=== PATIENT | female | born 1985 | race Caucasian/White ===

== ENCOUNTER 2018-03-28 17:10 | Emergency (ER) | payer MEDICAID ==
[2018-03-28 17:35] VITALS: BP 117/79
[2018-03-28] MEDS ORDERED: NORMAL SALINE 1000 ML 1,000 ML IV ONE (17:39)
[2018-03-28] MEDS ORDERED: ONDANSETRON HCL INJ/PF 4 MG/2 ML SDV IV ONE (17:39)
[2018-03-28] MEDS ORDERED: PROCHLORPERAZINE EDISYLATE INJ 10 MG/2 ML VIAL IV ONE (17:39)
--- NOTE | 2018-03-28 20:54 | ER Document Report ---
ED General - General Chief Complaint: Headache Stated Complaint: HEADACHE Time Seen by Provider: 03/28/18 17:36 TRAVEL OUTSIDE OF THE [place] IN LAST 30 DAYS: No - HPI Patient complains to provider of: Headache Notes: Patient coming in for headache ongoing for the last 3 days. Patient states history of migraines has been evaluated by neurology with imaging studies performed of her head showing no acute pathology patient states she is not on any chronic migraine medication at this time. Patient states no relief of her migraine at this time but Tylenol patient states headache is right-sided similar to her migraines in the past. Denies any fever chills nausea vomiting diarrhea denies any trauma. Patient is resting comfortably and in no obvious distress upon my evaluation. - Related Data Allergies/Adverse Reactions: tramadol Allergy (Verified 03/16/16 13:21) Past Medical History - Social History Smoking Status: Never Smoker Chew tobacco use (# tins/day): No Frequency of alcohol use: None Drug Abuse: None Family History: Reviewed & Not Pertinent Patient has suicidal ideation: No Patient has homicidal ideation: No Pulmonary Medical History: Reports: Hx Asthma Renal/ Medical History: Denies: Hx Peritoneal Dialysis Past Surgical History: Reports: Hx Section, Hx Tonsillectomy Review of Systems - Review of Systems Constitutional: No symptoms reported EENT: No symptoms reported Cardiovascular: No symptoms reported Respiratory: No symptoms reported Gastrointestinal: No symptoms reported Genitourinary: No symptoms reported Female Genitourinary: No symptoms reported Musculoskeletal: No symptoms reported Skin: No symptoms reported Hematologic/Lymphatic: No symptoms reported Neurological/Psychological: Headaches -: Yes All other systems reviewed and negative Physical Exam - Vital signs Vitals: Temp Pulse Resp BP Pulse Ox 98.6 F 83 20 117/79 100 03/28/18 17:34 03/28/18 17:34 03/28/18 17:34 03/28/18 17:34 03/28/18 17:34 Interpretation: Normal - General General appearance: Appears well, Alert - HEENT Head: Normocephalic, Atraumatic Eyes: Normal Pupils: PERRL - Respiratory Respiratory status: No respiratory distress Chest status: Nontender Breath sounds: Normal Chest palpation: Normal - Cardiovascular Rhythm: Regular Heart sounds: Normal auscultation Murmur: No - Abdominal Inspection: Normal Distension: No distension Bowel sounds: Normal Tenderness: Nontender Organomegaly: No organomegaly - Back Back: Normal, Nontender - Extremities General upper extremity: Normal inspection, Nontender, Normal color, Normal ROM , Normal temperature General lower extremity: Normal inspection, Nontender, Normal color, Normal ROM , Normal temperature, Normal weight bearing. No: Can's sign - Neurological Neuro grossly intact: Yes Cognition: Normal Orientation: AAOx4 [place] Coma Scale Eye Opening: Spontaneous [place] Coma Scale Verbal: Oriented [place] Coma Scale Motor: Obeys Commands [place] Coma Scale Total: 15 Speech: Normal Cranial nerves: Normal Motor strength normal: LUE, RUE, LLE, RLE Sensory: Normal Knee - Reflex grade: 2 = Normal - Psychological Associated symptoms: Normal affect, Normal mood - Skin Skin Temperature: Warm Skin Moisture: Dry Skin Color: Normal Course - Re-evaluation Re-evalutation: 03/28/18 20:53 The patient presents with headache without signs of [employer] PROFILER bleed, stroke, infection , or other serious etiology. The patient is neurologically intact. Given the extremely low risk of these diagnoses further testing and evaluation for these possibilities does not appear to be indicated at this time. The patient has been instructed to return if the symptoms worsen or change in any way.. At time of the. Patient's discharge papers instructed by the nursing staff today were unable to find the patient. Patient looks to eloped from the ER - Vital Signs Vital signs: Temp Pulse Resp BP Pulse Ox 98.6 F 83 20 117/79 100 03/28/18 17:34 03/28/18 17:34 03/28/18 17:34 03/28/18 17:34 03/28/18 17:34 Discharge - Discharge Clinical Impression: Headache Qualifiers: Headache type: unspecified Headache chronicity pattern: unspecified pattern Intractability: not intractable Qualified Code(s): R51 - Headache Disposition: ELOPED
== END 2018-03-28 19:51 | disposition left against medical advice (07) ==
LOC: ER 17:10
DX: R51 Headache (principal)
CPT/HCPCS: 99281; 96361; 96374; 96375; J0780; J2405; J7030

== ENCOUNTER 2018-08-06 10:12 | Outpatient (CLI) | payer MEDICAID | END 2018-08-06 11:19 | disposition home or self-care (01) | LOC: LC 10:12 | PROVIDERS: ATTEND Obstetrics & Gynecology Gynecology | DX: O36.8390 Maternal care for abnormalities of the fetal heart rate or rhythm, unspecified trimester, not applicable or unspecified (principal); O13.3 Gestational [pregnancy-induced] hypertension without significant proteinuria, third trimester; Z3A.36 36 weeks gestation of pregnancy; O24.419 Gestational diabetes mellitus in pregnancy, unspecified control | CPT/HCPCS: 59025 ==

== ENCOUNTER 2018-08-18 22:19 | Outpatient (CLI) | payer MEDICAID ==
[2018-08-18 22:42] LABS: APPEARANCE,URINE CLOUDY; BILIRUBIN,URINE NEGATIVE (NEGATIVE); COLOR,URINE YELLOW; GLUCOSE, URINE NEGATIVE (NEGATIVE); KETONES,URINE 20 mg/dL (NEGATIVE); LEUKOCYTE ESTERASE,URINE LARGE (NEGATIVE); NITRITE,URINE NEGATIVE (NEGATIVE); PROTEIN,URINE NEGATIVE (NEGATIVE); URINE SPECIFIC GRAVITY 1.027; UROBILINOGEN,URINE NEGATIVE mg/dL (<2.0)
[2018-08-18 22:57] LABS: URINE AMPHETAMINES SCREEN NEGATIVE; URINE BARBITURATES SCREEN NEGATIVE; URINE BENZODIAZEPINES SCREEN NEGATIVE; URINE COCAINE SCREEN NEGATIVE; URINE MARIJUANA (THC) SCREEN NEGATIVE; URINE METHADONE SCREEN NEGATIVE; URINE PHENCYCLIDINE SCREEN NEGATIVE
== END 2018-08-18 23:41 | disposition home or self-care (01) ==
LOC: LC 22:19
PROVIDERS: ATTEND Obstetrics & Gynecology
PROC: 4A1HXCZ Monitoring of Products of Conception, Cardiac Rate, External Approach (ICD-10-PCS; principal; 2018-08-18)
DX: O47.1 False labor at or after 37 completed weeks of gestation (principal); Z3A.38 38 weeks gestation of pregnancy
CPT/HCPCS: 59025; 80307; 81005

== ENCOUNTER 2018-08-19 07:41 | Inpatient (IN) | payer MEDICAID ==
[2018-08-19 08:29] LABS: APPEARANCE,URINE SLIGHTLY-CLOUDY; BILIRUBIN,URINE NEGATIVE (NEGATIVE); COLOR,URINE YELLOW; GLUCOSE, URINE NEGATIVE (NEGATIVE); KETONES,URINE NEGATIVE (NEGATIVE); LEUKOCYTE ESTERASE,URINE LARGE (NEGATIVE); NITRITE,URINE NEGATIVE (NEGATIVE); PROTEIN,URINE NEGATIVE (NEGATIVE); UROBILINOGEN,URINE NEGATIVE mg/dL (<2.0)
[2018-08-19 08:44] LABS: URINE AMPHETAMINES SCREEN NEGATIVE; URINE BARBITURATES SCREEN NEGATIVE; URINE BENZODIAZEPINES SCREEN NEGATIVE; URINE COCAINE SCREEN NEGATIVE; URINE MARIJUANA (THC) SCREEN NEGATIVE; URINE METHADONE SCREEN NEGATIVE; URINE PHENCYCLIDINE SCREEN NEGATIVE
[2018-08-19] MEDS ORDERED: PENICILLIN G POTASSIUM 5,000,000 UNIT in DEXTROSE 5%-WATER 100 ML IV ONE (08:56)
[2018-08-19] MEDS ORDERED: OXYTOCIN/NORMAL SALINE 20 UNIT/1,000 ML RTUINJ IV PRN ×2 (08:56→22:36)
[2018-08-19] MEDS: RINGERS SOLUTION,LACTATED 1,000 ML IV PRN ×2 (09:00→17:53)
[2018-08-19] MEDS ORDERED: PENICILLIN G-K 5 MILLION UNIT VIAL ONE ×3 (09:50→18:52)
[2018-08-19 10:11] LABS: HEMATOCRIT 32.2 % (36.0-47.0); HEMOGLOBIN 10.9 g/dL (12.0-15.5); MEAN CORPUSCULAR HEMOGLOBIN 27.8 pg (27.0-33.4); MEAN CORPUSCULAR HGB CONC 33.9 g/dL (32.0-36.0); MEAN CORPUSCULAR VOLUME 82 fl (80-97); PLATELET COUNT 329 10^3/uL (150-450); RED BLOOD COUNT 3.93 10^6/uL (3.72-5.28); RED CELL DISTRIBUTION WIDTH 13.8 % (11.5-14.0); WHITE BLOOD COUNT 9.6 10^3/uL (4.0-10.5)
[2018-08-19] MEDS ORDERED: OXYTOCIN/NORMAL SALINE 0 UNIT/0 ML RTUINJ ONE (10:43)
--- NOTE | 2018-08-19 14:02 | Admission Physical ---
Datetime Report Generated by CPN: 08/19/2018 14:01 CURRENT ADMISSION Hx Assessment: The History has been Reviewed and is Current Chief Complaint: Suspected Ruptured Membranes Indication for Induction: PROM Admit Impression : Term, Intrauterine Admit Plan: Initiate Labor Augmentation Protocol; Initiate Protocol ALLERGIES Medication Allergies: No Medication Allergies: tramadol (03/16/2016) Latex: No Latex Allergies OBSTETRICAL HISTORY EDC: 08/28/2018 00:00 : 3 Para: 2 Term: 2 : 0 SAB: 0 IAB: 0 Ectopic: 0 Livin Cesareans: 1 VBACs: 1 Multiple Births: 0 Gestational Diabetes: Yes Rh Sensitization: No Incompetent Cervix: No GAIL: No Infertility: No ART Treatment: No Uterine Anomaly: No IUGR: No Hx Previous C/S: Yes Macrosomia: No Hx Loss/Stillborn: No PIH: No Hx : No Placenta Previa/Abruption: No Depression/PP Depression: Yes PTL/PROM: No Post Hemorrhage: No Current Procedures: Ultrasound; NST Obstetrical History Comments: g1 - 06/23/2007 40 weeks c/s for faiure to progress and pelvis too small for size of baby 7lb 6oz male g2 - 02/02/2011 41 weeks female 6lb 0oz g3 - current - GDM, GBS+, Polyhydramnios, chronic hypertension SEE RECORDS Alcohol: No Marijuana : No Cocaine: No Other Illicit Drugs: No Cigarettes: Never Smoker. [id number] MEDICAL HISTORY Diabetes: Yes Diabetes Type: Gestational Diabetes Blood Transfusion: No Pulmonary Disease (Asthma, TB): Yes Breast Disease: No Hypertension: No Down Filler Surgery: No Heart Disease: No Hosp/Surgery: No Autoimmune Disorder: No Anesthetic Complications: No Kidney Disease: No Abnormal Pap Smear: No Neuro/Epilepsy: No Psychiatric Disorders: Yes Other Medical Diseases: No Hepatitis/Liver Disease: No Significant Family History: No Varicosities/Phlebitis: No Trauma/Violence : No Thyroid Dysfunction: No Medical History Comments: anxiety/depression INFECTIOUS HISTORY Gonorrhea: No Genital Herpes: No Chlamydia: No Tuberculosis: No Syphilis: No Hepatitis: No HIV/AIDS Exposure: No Rash or Viral Illness: No HPV: No PHYSICAL EXAM General: Normal Neurologic: Normal Heart: Normal Lungs: Normal Abdomen: Normal Extremities: Normal DTRs: Normal Pelvic Type: Adequate Physical Exam Comments: pelvis proven to 6lbs Vital Signs: Reviewed Details Vital Signs: mild range MEMBRANES Membranes: Ruptured Amniotic Fluid Color: Clear FETUS A EGA: 38.5 Monitoring: External US Variability: Moderate 6-25bpm FHR Category: Category I Presentation: Vertex Admit Comment: 32yo @ 38w5d into L_D this AM with SROM-clear fluid @ 0645. Pt. is A positive, rubella immune, GBS neg with hx of a primary in 2007 with in 2010. Pt. wants to attempt a TOLAC today. Medical hx also complicated by CHTN, PCOS, GDM, BMI 31 @ NOB and polyhydramnious. Report given to Dr. Guevara who is OB photographic reproduction technician today. Aware of patient and poc. PLANS FOR LABOR AND DELIVERY Labor and Delivery: None Pain Management: Medications Feeding Preference: Breast Benefit of Breast Feed Discussed: Yes Circumcision: No INFORMED CONSENT Assignment: Jamal Guevara MD Signature: with User ID: Catina : with User ID: [email or web address]
[2018-08-19] MEDS: PENICILLIN G POTASSIUM 2,500,000 UNIT in DEXTROSE 5%-WATER 50 ML IV SCH ×2 (14:16→18:55)
[2018-08-19] MEDS ORDERED: MISOPROSTOL 0.2 MG TABLET ONE (17:42)
[2018-08-19] MEDS ORDERED: OXYTOCIN 10 UNIT/ML VIAL ONE (17:42)
[2018-08-19] MEDS ORDERED: OXYTOCIN/NORMAL SALINE 20 UNIT/1,000 ML RTUINJ ONE (17:42)
[2018-08-19] MEDS ORDERED: LIDOCAINE 1% INJ-PF (10 MG/ML) 30 ML SDV ONE (17:42)
[2018-08-19] MEDS ORDERED: BUPIVACAINE HCL 0.25 % INJ/PF (2.5 MG/1 ML) 30 ML VIAL ONE (20:42)
[2018-08-19] MEDS ORDERED: EPHEDRINE SULFATE INJ 50 MG/1 ML AMPULE ONE (20:43)
[2018-08-19] MEDS ORDERED: FENTANYL/BUPIVACAINE/NS/PF 300 MCG/150 ML RTUINJ EPI ONE (20:43)
[2018-08-19] MEDS ORDERED: DIBUCAINE 1% OINTMENT 56 GM TP PRN (22:36)
[2018-08-19] MEDS ORDERED: NA PHOS,M-B/NA PHOS,DI-BA (ADULT) 133 ML ENEMA PR PRN (22:36)
[2018-08-19] MEDS ORDERED: ACETAMINOPHEN 650 MG SUPP.RECT PR PRN (22:36)
[2018-08-19] MEDS ORDERED: DIPHENHYDRAMINE HCL 25 MG CAPSULE PO PRN (22:36)
[2018-08-19] MEDS ORDERED: DIPH/PERTUSS(ACELL)/TETANUS VAC/PF 0.5 ML SYR (>=10YO) IM PRN (22:36)
[2018-08-19] MEDS ORDERED: MAGNESIUM HYDROXIDE SUSP 30 ML UDCUP PO PRN (22:36)
[2018-08-19] MEDS ORDERED: GLYCERIN/WITCH HAZEL LEAF 1 EACH MED..PAD TP PRN (22:36)
[2018-08-19] MEDS ORDERED: BENZOCAINE/MENTHOL AEROSOL SPRAY 56 ML TOP PRN (22:36)
[2018-08-19] MEDS ORDERED: ACETAMINOPHEN WITH CODEINE #3 TABLET PO PRN ×2 (22:36)
[2018-08-19] MEDS ORDERED: PSEUDOEPHEDRINE HCL 30 MG TABLET PO PRN (22:36)
[2018-08-19] MEDS ORDERED: MEASLES,MUMPS&RUBELLA VACC/PF 0.5 ML VIAL SUBCUT PRN (22:36)
[2018-08-19] MEDS ORDERED: ZOLPIDEM TARTRATE 5 MG TABLET PO PRN (22:36)
[2018-08-19] MEDS ORDERED: PROMETHAZINE HCL 25 MG SUPP.RECT PR PRN (22:36)
[2018-08-19] MEDS ORDERED: PROMETHAZINE HCL INJ 25 MG/1 ML VIAL IV PRN (22:36)
[2018-08-19] MEDS ORDERED: PROMETHAZINE HCL 25 MG TABLET PO PRN (22:36)
[2018-08-19] MEDS ORDERED: IBUPROFEN 800 MG TABLET ONE (22:47)
[2018-08-19] MEDS ORDERED: FAMOTIDINE 20 MG TABLET PO ONE (23:59)
[2018-08-19] MEDS ORDERED: IBUPROFEN 800 MG TABLET PO ONE (23:59)
--- NOTE | 2018-08-20 00:35 | Warning Signs in Babies ---
VOD Warning Signs Datetime Report Generated by [facility]: 08/20/2018 00:35 VOD#608 -Warning Signs in Babies: Needs to be viewed. (08/06/2018 10:29:Tuyet Molina RN)
[2018-08-20] MEDS: IBUPROFEN 800 MG TABLET PO SCH ×3 (06:00→23:26)
[2018-08-20] MEDS ORDERED: MEASLES,MUMPS&RUBELLA VACC/PF 0.5 ML VIAL SUBCUT PRN (07:30)
[2018-08-20] MEDS ORDERED: DIPH/PERTUSS(ACELL)/TETANUS VAC/PF 0.5 ML SYR (>=10YO) IM PRN (07:30)
[2018-08-20] MEDS ORDERED: PROMETHAZINE HCL INJ 25 MG/1 ML VIAL IV PRN (07:30)
[2018-08-20 08:11] LABS: HEMOGLOBIN 10.6 g/dL (12.0-15.5); MEAN CORPUSCULAR HEMOGLOBIN 27.1 pg (27.0-33.4); MEAN CORPUSCULAR HGB CONC 33.3 g/dL (32.0-36.0); MEAN CORPUSCULAR VOLUME 82 fl (80-97); PLATELET COUNT 269 10^3/uL (150-450); RED BLOOD COUNT 3.93 10^6/uL (3.72-5.28); WHITE BLOOD COUNT 15.2 10^3/uL (4.0-10.5)
[2018-08-20] MEDS: DOCUSATE SODIUM 100 MG CAPSULE PO SCH ×2 (11:40→17:32)
[2018-08-20] MEDS: FERROUS SULFATE 325 MG TABLET PO SCH ×2 (11:40→17:32)
[2018-08-20] MEDS: SENNOSIDES/DOCUSATE 8.6-50 MG 1 EACH TABLET PO SCH (11:40)
[2018-08-20] MEDS: PRENATAL VITAMIN W DHA CAPSULE PO SCH (11:40)
[2018-08-20] MEDS: FAMOTIDINE 20 MG TABLET PO SCH (11:41)
--- NOTE | 2018-08-20 12:42 | PDOC PROGRESS REPORT ---
Subjective-OB Progress Note for:: 08/20/18 - PP Day #1, doing well, no complaints. denies headache. Hx CHTN. A+, rubella Immune, , x 2 Physical Exam (OB) Vital Signs: Temp Pulse Resp BP Pulse Ox 98.2 F 88 18 123/78 97 08/20/18 08:00 08/20/18 08:00 08/20/18 08:00 08/20/18 08:00 08/20/18 08:00 Intake & Output 08/19/18 08/20/18 08/21/18 06:59 06:59 06:59 Intake Total 1050 Balance 1050 Weight 82.7 kg - General General Appearance: Appears well, Alert In distress: None - PIH/Pre-Eclampsia Headache: Absent Epigastric Pain: No Visual Changes: No - Lochia Lochia Amount: Scant < 10 ml Lochia Color: Rubra/Red - Abdomen Description: Soft, Round Hernia Present: No Fundal Description: Firm, Midline Fundal Height: u/u - u/2 - Respiratory Respiratory Status: No respiratory distress - Abdominal Inspection: Normal Distension: No distension - Genitourinary Genitourinary Note: voiding - Extremities Upper extremity: Normal inspection Lower extremities: Normal inspection - Neurological Cognition: Normal Orientation: AAOx4 Speech: Normal - Psychological Associated symptoms: Normal affect, Normal mood - Skin Skin Temperature: Warm Skin Moisture: Dry Objective-Diagnostic Laboratory: 08/20/18 07:38 08/20/18 07:38 WBC 15.2 H RBC 3.93 Hgb 10.6 L Hct 32.0 L MCV 82 MCH 27.1 MCHC 33.3 RDW 14.0 Plt Count 269 Assessment and Plan(PN) - Assessment and Plan (1) (normal spontaneous vaginal delivery) Is this a current diagnosis for this admission?: Yes - Time Spent with Patient Time with patient: Less than 15 minutes Medications reviewed and adjusted accordingly: Yes - Disposition Anticipated Discharge: Home Within: within 24 hours
[2018-08-21] MEDS: FAMOTIDINE 20 MG TABLET PO SCH ×2 (00:38→09:48)
[2018-08-21] MEDS: IBUPROFEN 800 MG TABLET PO SCH ×2 (06:03→13:51)
[2018-08-21 09:35] VITALS: BP 122/75
[2018-08-21] MEDS: DOCUSATE SODIUM 100 MG CAPSULE PO SCH ×2 (09:48→17:31)
[2018-08-21] MEDS: PRENATAL VITAMIN W DHA CAPSULE PO SCH (09:48)
[2018-08-21] MEDS: SENNOSIDES/DOCUSATE 8.6-50 MG 1 EACH TABLET PO SCH (09:48)
[2018-08-21] MEDS: FERROUS SULFATE 325 MG TABLET PO SCH ×2 (09:48→17:31)
--- NOTE | 2018-08-21 10:06 | PDOC DISCHARGE SUMMARY ---
Final Diagnosis Discharge Date: 08/21/18 - Final Diagnosis (1) (normal spontaneous vaginal delivery) Is this a current diagnosis for this admission?: Yes (2) Normal course Is this a current diagnosis for this admission?: Yes (3) Vaginal after , delivered, current hospitalization Is this a current diagnosis for this admission?: Yes Discharge Data - Discharge Medication Prescriptions: Ibuprofen [Motrin 800 mg Tablet] 800 mg PO Q8HP PRN #60 tablet PRN Reason: Home Medications: Buspirone HCl [Buspar 10 mg Tablet] 10 mg PO BID 08/06/18 Citalopram Hydrobromide [Celexa 10 mg Tablet] 10 mg PO QHS 08/06/18 Zolpidem Tartrate [Ambien] 10 mg PO QHS 08/06/18 Vit No.130/Iron/Folic [ Tablet] 1 each PO DAILY 08/19/18 Ibuprofen [Motrin 800 mg Tablet] 800 mg PO Q8HP PRN #60 tablet 08/21/18 Intrapartum Procedure(s): Spontaneous Vaginal Delivery - Diagnosis Test Laboratory: Temp Pulse Resp BP Pulse Ox 98.0 F 72 16 122/75 97 08/21/18 08:32 08/21/18 08:32 08/21/18 08:32 08/21/18 08:32 08/21/18 08:32 08/19/18 08/19/18 08/20/18 08:05 09:50 07:38 RBC 3.93 3.93 Hgb 10.9 L 10.6 L Hct 32.2 L 32.0 L Urine Opiates Screen NEGATIVE - Discharge information/Instructions Discharge Activity: Balance Activity w/Rest, Pelvic Rest Discharge Diet: Regular Disposition: HOME, SELF-CARE Follow up with: [facility] in: 4, Weeks
--- NOTE | 2018-08-27 12:39 | Delivery Summary ---
Del Sum A-C Datetime Report Generated by CPN: 08/27/2018 12:39 DELIVERY PERSONNEL DELIVERY PERSONNEL: [id number] Delivery Doctor:: Jamal Guevara MD Labor and Delivery Nurse:: Tuyet Molina, hardware installer Nurse:: Maddison Wagner RN Mental Health Orderly/ACADEMIC SUPPORT ASSISTANT: Alejandra Ross, ST MATERNAL INFORMATION Delivery Anesthesia: Epidural Medications After Delivery: Pitocin Drip 20 Units/1000ml NSS Maternal Complications: Other Complication Details: LABOR SUMMARY EDC: 08/28/2018 00:00 No. Babies in Womb: 1 Attempted: Yes Labor Anesthesia: Epidural LABOR INFORMATION Reason for Induction: Not Applicable Onset of Labor: 08/19/2018 08:21 Complete Dilatation: 08/19/2018 21:47 Oxytocin: Augmentation Group B Beta Strep: positive Antibiotics # of Doses: 3 Antibiotics Time of Last Dose: 1854 Name of Antibiotic Given: Penicillin Steroids Given: None Reason Steroids Not Administered: Not Applicable MEMBRANES Membranes Rupture Method: Spontaneous Rupture of Membranes: 08/19/2018 05:15 Length of Rupture (hr): 17.20 Amniotic Fluid Color: Clear Amniotic Fluid Amount: Moderate Amniotic Fluid Odor: Normal STAGES OF LABOR Stage 1 hr: 13 Stage 1 min: 26 Stage 2 hr: 0 Stage 2 min: 40 Stage 3 hr: 0 Stage 3 min: 4 Total Time in Labor hr: 14 Total Time in Labor min: 10 VAGINAL DELIVERY Episiotomy: None Laceration #1: None Laceration #1: None Laceration Extension #1: N/A Laceration Extension #1: N/A Laceration Repair: Not Applicable Sponge Count Correct: Yes Sharps Count Correct: Yes CSECTION DELIVERY Primary Indication: N/A Secondary Indication: N/A CSection Incidence: N/A Labor: N/A Elective: N/A CSection Incision: N/A BABY A INFORMATION Delivery Date/Time: 08/19/2018 22:27 Method of Delivery: Vaginal Born in Route : No : Successful Forceps: N/A Vacuum Extraction: N/A Shoulder Dystocia : No PRESENTATION/POSITION BABY A Presentation: Cephalic Cephalic Presentation: Vertex Vertex Position: Direct Occipital Posterior Breech Presentation: N/A PLACENTA INFORMATION BABY A Placenta Delivery Time : 08/19/2018 22:31 Placenta Method of Delivery: Spontaneous Placenta Method of Delivery: Spontaneous Placenta Status: Delivered SCORES BABY A Heart Rate 1 min: >100 bpm Resp Effort 1 min: Good Cry Reflex Irritability 1 min: Cough or Sneeze or Pulls Away Muscle Tone 1 min: Active Motion Color 1 min: Blue/Pale SCORE 1 MIN: 8 Heart Rate 5 min: >100 bpm Resp Effort 5 min: Good Cry Reflex Irritability 5 min: Cough or Sneeze or Pulls Away Muscle Tone 5 min: Active Motion Color 5 min: Body [place], Extremities Blue SCORE 5 MIN: 9 INFANT INFORMATION BABY A Gestational Age at Delivery: 38.5 Gestational Status: Early Term- 37- 38.6 Weeks Outcome : Liveborn Infant Condition : Stable Infant Sex: Male IDENTIFICATION BABY A Verification Date/Time: 08/19/2018 22:35 ID Band Number: [id number] Mother's Name Verified: Yes Infant RN Verifying : NDoyle RN, TGentilin RN WEIGHT/LENGTH BABY A Birthweight (gm): 2640 Weight (lb): 5 Infant Weight (oz): 13 Length (in): 18.50 Infant Length (cm): 46.99 CORD INFORMATION BABY A No. Cord Vessels: 3 Nuchal Cord : N/A Cord Blood Taken: Yes-For Storage (Mom's Blood type +) ASSESSMENT BABY A Infant Complications: Multiple Late Decels; Multiple Variable Decels Physical Findings at Delivery: Within Normal Limits Respirations: Appears Normal Skin to Skin: Yes Machinist Apprentice Wood/ALS Called : No Infant Care By: Zain Wagner RN Transferred To: Nursery BABY B INFORMATION : N/A SIGNATURES Signature: with User ID: [email or web address]
== END 2018-08-21 19:15 | disposition home or self-care (01) | DRG 806 ==
LOC: LC 07:41 → LR 08:29 → 2S 08-20 01:05
PROVIDERS: ADMIT Obstetrics & Gynecology Gynecology; ATTEND Obstetrics & Gynecology Gynecology
PROC: 10E0XZZ Delivery of Products of Conception, External Approach (ICD-10-PCS; principal; 2018-08-19)
DX: O34.211 Maternal care for low transverse scar from previous cesarean delivery (principal); O10.92 Unspecified pre-existing hypertension complicating childbirth; Z37.0 Single live birth; O24.420 Gestational diabetes mellitus in childbirth, diet controlled; O40.3XX0 Polyhydramnios, third trimester, not applicable or unspecified; O99.824 Streptococcus B carrier state complicating childbirth; O76 Abnormality in fetal heart rate and rhythm complicating labor and delivery; O99.284 Endocrine, nutritional and metabolic diseases complicating childbirth; O99.52 Diseases of the respiratory system complicating childbirth; E28.2 Polycystic ovarian syndrome; J45.909 Unspecified asthma, uncomplicated; N85.8 Other specified noninflammatory disorders of uterus; Z3A.38 38 weeks gestation of pregnancy
CPT/HCPCS: 36415; 80307; 81005; 84112; 85027; 86592; 86850; 86900; 86901; 86920; 94760; J2540; J2590; J3010; J3490

== ENCOUNTER 2019-01-03 18:58 | Emergency (ER) | payer MEDICAID ==
[2019-01-03] MEDS ORDERED: NORMAL SALINE 1000 ML 1,000 ML IV ONE (20:02)
[2019-01-03] MEDS ORDERED: ONDANSETRON HCL INJ/PF 4 MG/2 ML SDV IV ONE (20:02)
--- NOTE | 2019-01-03 20:03 | ER Document Report ---
ED Medical Screen (RME) - General Chief Complaint: Nausea/Vomiting Stated Complaint: VOMITING Time Seen by Provider: 01/03/19 19:55 Notes: Patient is a 33-year-old female who presents emergency department with a chief complaint of vomiting since last night. Patient states that she was drinking alcohol last night and ever since she has been vomiting. Patient has a past medical history of anxiety and depression currently takes Ambien, Celexa, and BuSpar. Patient states that there was some blood in her emesis and reports only a small amount. Patient denies any pain, but states that she has some cramping. Exam: Soft nontender abdomen. I have greeted and performed a rapid initial assessment of this patient. A comprehensive ED assessment and evaluation of the patient, analysis of test results and completion of medical decision making process will be conducted by an additional ED providers. TRAVEL OUTSIDE OF THE [place] IN LAST 30 DAYS: No - Related Data Allergies/Adverse Reactions: tramadol Allergy (Verified 01/03/19 19:01) Past Medical History - Social History Frequency of alcohol use: Occasional Drug Abuse: None Pulmonary Medical History: Reports: Hx Asthma Renal/ Medical History: Denies: Hx Peritoneal Dialysis Past Surgical History: Reports: Hx Section, Hx Tonsillectomy Physical Exam - Vital signs Vitals: Temp Pulse Resp BP Pulse Ox 98.1 F 92 18 142/93 H 96 01/03/19 19:06 01/03/19 19:06 01/03/19 19:06 01/03/19 19:06 01/03/19 19:06 Course - Vital Signs Vital signs: Temp Pulse Resp BP Pulse Ox 98.1 F 92 18 142/93 H 96 01/03/19 19:06 01/03/19 19:06 01/03/19 19:06 01/03/19 19:06 01/03/19 19:06
[2019-01-03 20:23] LABS: ABSOLUTE BASOPHILS # (AUTO) 0.1 10^3/uL (0.0-0.2); ABSOLUTE EOSINOPHILS # (AUTO) 0.2 10^3/uL (0.0-0.6); ABSOLUTE LYMPHOCYTES (AUTO) 2.5 10^3/uL (0.5-4.7); ABSOLUTE MONOCYTES (AUTO) 0.9 10^3/uL (0.1-1.4); ABSOLUTE NEUT (AUTO) 10.2 10^3/uL (1.7-8.2); BASOPHILS % (AUTO) 1.1 % (0-2); EOSINOPHILS % (AUTO) 1.3 % (0-6); HEMATOCRIT 41.7 % (36.0-47.0); HEMOGLOBIN 13.8 g/dL (12.0-15.5); MEAN CORPUSCULAR HEMOGLOBIN 28.4 pg (27.0-33.4); MEAN CORPUSCULAR HGB CONC 33.1 g/dL (32.0-36.0); MEAN CORPUSCULAR VOLUME 86 fl (80-97); MONOCYTES % (AUTO) 6.7 % (3-13); PLATELET COUNT 417 10^3/uL (150-450); RED BLOOD COUNT 4.85 10^6/uL (3.72-5.28); RED CELL DISTRIBUTION WIDTH 13.7 % (11.5-14.0); SEGMENTED NEUTROPHILS % (AUTO) 72.9 % (42-78); TOTAL CELLS COUNTED % (AUTO) 100 %
[2019-01-03 20:29] LABS: AMORPHOUS SEDIMENT,URINE TRACE /HPF; APPEARANCE,URINE SLIGHTLY-CLOUDY; BILIRUBIN,URINE NEGATIVE (NEGATIVE); COLOR,URINE YELLOW; GLUCOSE, URINE NEGATIVE (NEGATIVE); KETONES,URINE NEGATIVE (NEGATIVE); LEUKOCYTE ESTERASE,URINE TRACE (NEGATIVE); NITRITE,URINE NEGATIVE (NEGATIVE); PROTEIN,URINE >=500 mg/dL (NEGATIVE); URINE SPECIFIC GRAVITY 1.029; UROBILINOGEN,URINE NEGATIVE mg/dL (<2.0)
[2019-01-03 20:42] LABS: ALANINE AMINOTRANSFERASE 24 U/L (9-52); ALBUMIN 5.4 g/dL (3.5-5.0); ALKALINE PHOSPHATASE 81 U/L (38-126); ANION GAP 13 (5-19); ASPARTATE AMINO TRANSFERASE 36 U/L (14-36); BILIRUBIN,DIRECT 0.2 mg/dL (0.0-0.4); BILIRUBIN,TOTAL 0.3 mg/dL (0.2-1.3); BLOOD UREA NITROGEN 15 mg/dL (7-20); CARBON DIOXIDE 33 mmol/L (22-30); CHLORIDE 97 mmol/L (98-107); GLUCOSE 109 mg/dL (75-110); POTASSIUM 4.1 mmol/L (3.6-5.0); TOTAL PROTEIN 8.7 g/dL (6.3-8.2)
--- NOTE | 2019-01-03 21:34 | ER Document Report ---
ED General - General Chief Complaint: Nausea/Vomiting Stated Complaint: VOMITING Time Seen by Provider: 01/03/19 19:55 TRAVEL OUTSIDE OF THE [place] IN LAST 30 DAYS: No - HPI Notes: Patient is a 33-year-old female that presents to the emergency department for chief complaint of hematemesis. Patient reports heavy alcohol consumption last night. She states that she began vomiting early this morning and had continued throughout the day. This afternoon she started to have bright red blood in her emesis. She states there was one episode that seemed to be a large amount of blood. She has vomited since then and states that the last time was about an hour ago. Her last emesis was mildly pink-tinged. She denies any history of peptic ulcers in the past. She denies any chest pain, shortness of breath or difficulty breathing. She did receive Zofran in triage and states that she is feeling much better. Patient endorses an epigastric abdominal pain when vomiting that has also improved since coming to the emergency room. Past Medical History: Anxiety and depression Past Surgical History: Social History: Occasional alcohol. Denies tobacco and drug use Family History: Reviewed and noncontributory for presenting illness Allergies: Reviewed, see documented allergy list. REVIEW OF SYSTEMS: CONSTITUTIONAL : No fever No chills No diaphoresis No recent illness EENT: No vision changes No congestion No sore throat CARDIOVASCULAR: No chest pain No palpitations RESPIRATORY: No shortness of breath No cough No difficulty breathing GASTROINTESTINAL: abdominal pain nausea vomiting No diarrhea GENITOURINARY: No dysuria No hematuria No difficulty urinating MUSCULOSKELETAL: No back pain No leg pain No arm pain SKIN: No rashes No lesions LYMPHATIC: No swollen, enlarged glands. NEUROLOGICAL: No lightheadedness No headache No weakness No paresthesias PSYCHIATRIC: No anxiety No depression PHYSICAL EXAMINATION: Vital signs reviewed, nursing noted reviewed. GENERAL: Well-appearing, well-nourished and in no acute distress. HEAD: Atraumatic, normocephalic. EYES: Eyes appear normal, extraocular movements intact, sclera anicteric, conjunctiva are normal. ENT: nares patent, oropharynx clear without exudates. Moist mucous membranes. NECK: No crepitus normal range of motion, supple without lymphadenopathy LUNGS: No crepitus, breath sounds clear to auscultation bilaterally and equal. No wheezes rales or rhonchi. HEART: Regular rate and rhythm without murmurs ABDOMEN: Soft, nontender, normoactive bowel sounds. No rebound, guarding, or rigidity. No masses appreciated. EXTREMITIES: Nontender, good range of motion, no pitting or edema. NEUROLOGICAL: No focal neurological deficits. Moves all extremities spontaneously Motor and sensory grossly intact on exam. PSYCH: Normal mood, normal affect. SKIN: Warm, Dry, normal turgor, no rashes or lesions noted on exposed skin - Related Data Allergies/Adverse Reactions: tramadol Allergy (Verified 01/03/19 19:01) Past Medical History - Social History Smoking Status: Never Smoker Frequency of alcohol use: Occasional Drug Abuse: None Family History: Reviewed & Not Pertinent Patient has suicidal ideation: No Patient has homicidal ideation: No Pulmonary Medical History: Reports: Hx Asthma Renal/ Medical History: Denies: Hx Peritoneal Dialysis Past Surgical History: Reports: Hx Section, Hx Tonsillectomy Physical Exam - Vital signs Vitals: Temp Pulse Resp BP Pulse Ox 98.1 F 92 18 142/93 H 96 01/03/19 19:06 01/03/19 19:06 01/03/19 19:06 01/03/19 19:06 01/03/19 19:06 Course - Re-evaluation Re-evalutation: 01/03/19 21:45 Vitals reviewed and stable. Nursing notes reviewed. Patient had significant improvement of her symptoms after receiving Zofran in triage. She has tolerated oral intake. Her lab work shows hypochloremia consistent with her ongoing vomiting today. She also has a leukocytosis of 14 which is likely reactive from her vomiting. The remainder of her work-up is normal. She has no acute anemia. Her hematemesis has slowed down since this afternoon and is likely secondary to Carrol-Barkley tear from frequent vomiting today. Patient has no chest wall or neck crepitus or severe pain to suggest perforation of her esophagus. She currently states she is feeling much better and would like to be discharged home. At this point I see no indication for further work-up since her symptoms are improving. Patient had refused IV fluids in the ED and states she prefers to do p.o. hydration. Patient will be started on omeprazole and was counseled on dietary changes as well as avoiding alcohol. She will return for any increased bleeding, lightheadedness or ongoing vomiting. She will follow with her PCP for reevaluation in the next few days. Laboratory 01/03/19 01/03/19 01/03/19 20:10 20:10 20:10 WBC 14.0 H RBC 4.85 Hgb 13.8 Hct 41.7 MCV 86 MCH 28.4 MCHC 33.1 RDW 13.7 Plt Count 417 Seg Neutrophils % 72.9 Lymphocytes % 18.0 Monocytes % 6.7 Eosinophils % 1.3 Basophils % 1.1 Absolute Neutrophils 10.2 H Absolute Lymphocytes 2.5 Absolute Monocytes 0.9 Absolute Eosinophils 0.2 Absolute Basophils 0.1 Sodium 143.0 Potassium 4.1 Chloride 97 L Carbon Dioxide 33 H Anion Gap 13 BUN 15 Creatinine 0.64 Est GFR ( Amer) > 60 Est GFR (Non-Af Amer) > 60 Glucose 109 Calcium 10.0 Total Bilirubin 0.3 Direct Bilirubin 0.2 Neonat Total Bilirubin Not Reportable Neonat Direct Bilirubin Not Reportable Neonat Indirect Bili Not Reportable AST 36 ALT 24 Alkaline Phosphatase 81 Total Protein 8.7 H Albumin 5.4 H Urine Color YELLOW Urine Appearance SLIGHTLY-CLOUDY Urine pH 7.0 Ur Specific [place] 1.029 Urine Protein >=500 H Urine Glucose (UA) NEGATIVE Urine Ketones NEGATIVE Urine Blood NEGATIVE Urine Nitrite NEGATIVE Urine Bilirubin NEGATIVE Urine Urobilinogen NEGATIVE Ur Leukocyte Esterase TRACE H Urine WBC (Auto) 1 Squamous Epi Cells Auto 11 Amorphous Sediment Auto TRACE Urine Mucus (Auto) RARE Urine Ascorbic Acid NEGATIVE Urine HCG, Qual NEGATIVE - Vital Signs Vital signs: Temp Pulse Resp BP Pulse Ox 98.1 F 92 18 142/93 H 96 01/03/19 19:06 01/03/19 19:06 01/03/19 19:06 01/03/19 19:06 01/03/19 19:06 - Laboratory Result Diagrams: 01/03/19 20:10 01/03/19 20:10 Laboratory results interpreted by me: 01/03/19 01/03/19 01/03/19 20:10 20:10 20:10 WBC 14.0 H Absolute Neutrophils 10.2 H Chloride 97 L Carbon Dioxide 33 H Total Protein 8.7 H Albumin 5.4 H Urine Protein >=500 H Ur Leukocyte Esterase TRACE H Discharge - Discharge Clinical Impression: Hematemesis Qualifiers: Nausea presence: with nausea Qualified Code(s): K92.0 - Hematemesis Condition: Stable Disposition: HOME, SELF-CARE Instructions: Vomiting ([facility]) Additional Instructions: Please return to the emergency department if you have any worsening, or concern of your symptoms. Please return to the emergency department if you develop chest pain, difficulty breathing, severe abdominal pain, or ongoing vomiting. Please follow-up with your primary care physician in 2-3 days and any other recommended physicians. If prescribed, take all medications as directed. If you have any questions or concerns do not hesitate to return the emergency department for evaluation. You likely have a Carrol-Barkley tear. This is a small tear in your esophagus from repeatedly vomiting. This should heal on its own in the next few days. If you continue to have large amounts of blood when you vomit you should return to the emergency room. Begin taking the omeprazole prescription tomorrow. Avoid eating any aggravating foods including citrus, spicy, fried. Avoid any alcohol consumption. Prescriptions: Omeprazole 40 mg PO DAILY #20 capsule. Ondansetron [Zofran Odt 4 mg Tablet] 1 tab PO Q4H PRN #15 tab.rapdis PRN Reason: For Nausea/Vomiting Referrals: [facility] [Provider Group] - Follow up as needed
[2019-01-03] MEDS ORDERED: FAMOTIDINE 20 MG TABLET PO ONE (21:41)
[2019-01-03 22:02] VITALS: BP 145/72
== END 2019-01-03 22:01 | disposition home or self-care (01) ==
LOC: ER 18:58
DX: K92.0 Hematemesis (principal); R10.13 Epigastric pain; D72.829 Elevated white blood cell count, unspecified; E87.8 Other disorders of electrolyte and fluid balance, not elsewhere classified; J45.909 Unspecified asthma, uncomplicated; Z88.5 Allergy status to narcotic agent
CPT/HCPCS: 99284; 96374; 36415; 85025; 81025; 80053; 81001; J3490; J2405